=== PATIENT | female | born 1930 | race African-American/Black ===

== ENCOUNTER 2020-03-28 00:53 | Inpatient (IN) | payer MEDICARE, OTHER ==
[~2020-03-28] VITALS: Ht 154.9 cm; Wt 86.3 kg
[2020-03-28 02:11] LABS: BASOPHILS % 0.2 % (0.0-2.0); CHLORIDE 94 mEq/L (98-107); EOSINOPHILS % 4.1 % (0.0-5.0); HEMATOCRIT. 35.9 % (36.0-48.0); HEMOGLOBIN. 12.4 g/dL (12.0-16.0); MEAN CORPUSCULAR HEMOGLOBIN 32.4 pg (28.0-32.0); MEAN CORPUSCULAR VOLUME 93.8 fL (81.0-99.0); MEAN PLATELET VOLUME 8.3 fl (7.4-10.4); MONOCYTES % 13.1 % (2.0-8.0); NEUTROPHILS % 62.6 % (40.0-76.0); PLATELET 203 x1000/uL (130-400); RED BLOOD CELL COUNT 3.82 mill/uL (4.2-5.4); RED CELL DISTRIBUTION WIDTH 13.4 % (11.6-14.6)
[2020-03-28 02:16] LABS: INR 0.9
[2020-03-28 04:24] LABS: CLARITY URINE CLEAR (CLEAR); COLOR URINE DARK YELLOW (YELLOW); KETONES URINE NEGATIVE (NEGATIVE); LEUKOCYTE ESTERASE URINE 1+ (NEGATIVE); NITRITE URINE NEGATIVE (NEGATIVE); OCCULT BLOOD URINE NEGATIVE (NEGATIVE); PROTEIN URINE NEGATIVE (NEGATIVE); SPECIFIC GRAVITY URINE 1.018 (1.005-1.030); UROBILINOGEN URINE 0.2 E.U./dL (0.2-1.0)
[2020-03-28] MEDS ORDERED: SODIUM CHLORIDE 0.9% 1,000 ML IV ONE (04:59)
[2020-03-28] MEDS ORDERED: LEVOFLOXACIN 750MG PREMIX 150 ML IV SCH (05:15)
[2020-03-28] MEDS ORDERED: LEVOFLOXACIN 500MG PREMIX 100 ML IV SCH (07:00)
[2020-03-28] MEDS ORDERED: GUAIFENESIN 200MG/10ML SUGAR FREE UDC PO PRN (07:00)
[2020-03-28] MEDS ORDERED: ONDANSETRON HCL 4MG/2ML INJ IV PRN (07:00)
[2020-03-28] MEDS ORDERED: ACETAMINOPHEN 325MG TABLET PO PRN ×2 (07:00)
[2020-03-28] MEDS ORDERED: MAGNESIUM/ALUMINUM HYDROXIDE/SIMETHICONE 30ML UDC PO PRN (07:00)
[2020-03-28] MEDS ORDERED: ENOXAPARIN 40MG/0.4ML SYR SUBCUT SCH (07:00)
[2020-03-28] MEDS ORDERED: NITROGLYCERIN 0.4MG TABLET SL SL PRN (07:00)
[2020-03-28] MEDS ORDERED: DOCUSATE SODIUM 100MG CAPSULE PO PRN (07:00)
[2020-03-28] MEDS: SODIUM CHLORIDE 0.9% 1,000 ML IV SCH ×2 (08:15→17:22)
[2020-03-28] MEDS: ZINC SULFATE 220 MG ( 50 ) CAPSULE PO SCH (08:35)
[2020-03-28] MEDS: FAMOTIDINE 20MG TABLET PO SCH (08:35)
[2020-03-28] MEDS: ASCORBIC ACID 500 MG TABLET PO SCH ×2 (08:35→23:42)
[2020-03-28] MEDS ORDERED: FAMOTIDINE 20MG TABLET PO SCH (09:00)
[2020-03-28] MEDS ORDERED: ENOXAPARIN 30MG/0.3ML SYR SUBCUT SCH (09:00)
[2020-03-28 09:31] LABS: T4 FREE 1.14 ng/dL (0.76-1.46)
[2020-03-28 09:42] LABS: FOLIC ACID (FOLATE) SERUM >20 ng/mL ng/mL (>5.38)
[2020-03-28 09:56] LABS: VITAMIN B12 SERUM > 2000.0 pg/mL (211-911)
[2020-03-28 22:12] VITALS: BP 157/79
[2020-03-28 23:00] VITALS: BP 156/79
[2020-03-28] MEDS: TRAMADOL 50MG TABLET PO PRN (23:41)
[2020-03-29] VITALS: BP 156/79
[2020-03-29 00:41] LABS: CREATINE KINASE MB FRACTION 10.8 ng/mL (0.5-3.6)
[2020-03-29] MEDS: ZOLPIDEM TARTRATE 5MG TABLET PO PRN ×2 (02:39→21:36)
[2020-03-29] MEDS: SODIUM CHLORIDE 0.9% 1,000 ML IV SCH ×3 (02:41→21:36)
[2020-03-29 04:00] VITALS: BP 130/71
[2020-03-29] MEDS: ENOXAPARIN 80MG/0.8ML SYR SUBCUT SCH (05:51)
[2020-03-29 08:00] VITALS: BP 160/89
[2020-03-29 08:15] LABS: BASOPHILS % 0.3 % (0.0-2.0); EOSINOPHILS % 1.7 % (0.0-5.0); HEMATOCRIT. 36.1 % (36.0-48.0); HEMOGLOBIN. 12.4 g/dL (12.0-16.0); LYMPHOCYTES % 16.3 % (20.0-50.0); MEAN CORPUSCULAR HEMOGLOBIN 32.7 pg (28.0-32.0); MEAN CORPUSCULAR VOLUME 95.4 fL (81.0-99.0); MEAN PLATELET VOLUME 7.3 fl (7.4-10.4); MONOCYTES % 14.9 % (2.0-8.0); NEUTROPHILS % 66.8 % (40.0-76.0); PLATELET 197 x1000/uL (130-400); RED BLOOD CELL COUNT 3.78 mill/uL (4.2-5.4); RED CELL DISTRIBUTION WIDTH 12.7 % (11.6-14.6)
[2020-03-29] MEDS: LEVOFLOXACIN 250MG PREMIX 50 ML IV SCH (08:30)
[2020-03-29] MEDS: ZINC SULFATE 220 MG ( 50 ) CAPSULE PO SCH (08:30)
[2020-03-29] MEDS: ASCORBIC ACID 500 MG TABLET PO SCH ×2 (08:30→21:36)
[2020-03-29] MEDS: FAMOTIDINE 20MG TABLET PO SCH (08:30)
[2020-03-29 08:33] LABS: CHLORIDE 103 mEq/L (98-107)
[2020-03-29 08:48] LABS: PHOSPHORUS 3.4 mg/dL (2.5-4.9)
[2020-03-29 11:54] LABS: T4 FREE 1.27 ng/dL (0.76-1.46)
[2020-03-29 12:00] VITALS: BP 169/83
[2020-03-29] MEDS: CLONIDINE 0.1MG TABLET PO PRN ×2 (13:44→21:48)
[2020-03-29 16:00] VITALS: BP 135/69
[2020-03-29] MEDS ORDERED: LOSA50TA41 PO (17:40)
[2020-03-29] MEDS ORDERED: GABA-529 PO (17:40)
[2020-03-29] MEDS ORDERED: HYDR100T26 MT (17:40)
[2020-03-29] MEDS ORDERED: ATEN50TA PO (17:40)
[2020-03-29] MEDS ORDERED: METH25TA5 PO (17:40)
[2020-03-29 17:48] LABS: CREATINE KINASE MB FRACTION 18.7 ng/mL (0.5-3.6)
[2020-03-29 19:31] VITALS: BP 165/72
[2020-03-29] MEDS: IPRATROPIUM/ALBUTEROL 0.5-3(2.5)MG/3ML NEB ORI PRN (23:42)
[2020-03-30] VITALS: BP 145/72
[2020-03-30 00:49] LABS: CREATINE KINASE MB FRACTION 18.2 ng/mL (0.5-3.6)
[2020-03-30 03:48] VITALS: BP 157/93
[2020-03-30 07:40] LABS: PHOSPHORUS 2.8 mg/dL (2.5-4.9)
[2020-03-30 07:42] LABS: CREATINE KINASE MB FRACTION 21.5 ng/mL (0.5-3.6)
[2020-03-30] MEDS ORDERED: HYDRALAZINE HCL 50MG TABLET PO NR (07:45)
[2020-03-30 08:00] VITALS: BP 204/101
[2020-03-30] MEDS: ASPIRIN 81MG TABLET PO SCH (08:03)
[2020-03-30] MEDS: ASCORBIC ACID 500 MG TABLET PO SCH ×2 (08:03→21:21)
[2020-03-30] MEDS: ZINC SULFATE 220 MG ( 50 ) CAPSULE PO SCH (08:03)
[2020-03-30] MEDS: FAMOTIDINE 20MG TABLET PO SCH (08:03)
[2020-03-30] MEDS: ENOXAPARIN 80MG/0.8ML SYR SUBCUT SCH (08:04)
[2020-03-30] MEDS: LEVOFLOXACIN 250MG PREMIX 50 ML IV SCH (08:28)
[2020-03-30] MEDS: SODIUM CHLORIDE 0.9% 1,000 ML IV SCH ×2 (08:36→09:15)
[2020-03-30] MEDS: IPRATROPIUM/ALBUTEROL 0.5-3(2.5)MG/3ML NEB ORI PRN (09:01)
[2020-03-30] MEDS: CLOPIDOGREL 75MG TABLET PO SCH (10:39)
[2020-03-30] MEDS ORDERED: BRIM5DRO6 EACHEYE (10:42)
[2020-03-30] MEDS ORDERED: DORZ10DR12 EACHEYE (10:44)
[2020-03-30] MEDS ORDERED: LATA2.5D4 EACHEYE (10:44)
[2020-03-30 12:00] VITALS: BP 132/77
[2020-03-30] MEDS ORDERED: MAGNESIUM 1 G PREMIX 100 ML IV ONE (13:00)
[2020-03-30] MEDS ORDERED: IPRATROPIUM/ALBUTEROL 0.5-3(2.5)MG/3ML NEB ORI SCH (13:00)
[2020-03-30] MEDS: HYDRALAZINE HCL 50MG TABLET PO SCH ×2 (13:41→21:21)
[2020-03-30 16:00] VITALS: BP 129/97
[2020-03-30] MEDS ORDERED: MEDICATION NOT ON FORMULARY EA (Brimonidine Tartrate 1 DROP) EACHEYE SCH (17:00)
[2020-03-30] MEDS: BRIMONIDINE 0.2% OPHTH DROPS 5ML EACHEYE SCH (17:10)
[2020-03-30] MEDS: METHAZOLAMIDE 50MG TABLET PO SCH (17:26)
[2020-03-30] MEDS: DORZOLAM/TIMOLOL 2.23/0.68% OPHTH DROPS 10ML EACHEYE SCH (17:26)
[2020-03-30 18:08] LABS: BG BASE EXCESS -6.8 mmol/L (-2.0-2.0); BG CARBOXYHEMOGLOBIN 0.3 % (0.5-1.5); BG DEOXYHEMOGLOBIN 1.8 % (0.0-5.0); BG HCO3 ACT 16.9 mmol/L (22.0-26.0); BG OXYGEN SATURATION 98.2 % (92.0-98.5); BG OXYHEMOGLOBIN 97.9 % (94.0-97.0); BG PCO2 28.4 mmHg (35.0-45.0); BG PH 7.393 (7.350-7.450); BG PO2 117.6 mmHg (75.0-100.0); BG SAMPLE SITE RIGHT BRACHIAL; BG TOTAL HEMOGLOBIN 11.1 g/dL (12.0-18.0); BG VENT MODE NASAL CANNULA
[2020-03-30 20:00] VITALS: BP 164/100
[2020-03-30] MEDS: IPRATROPIUM/ALBUTEROL 0.5-3(2.5)MG/3ML NEB HHN SCH (21:15)
[2020-03-30] MEDS: BUDESONIDE 0.5MG/2ML NEB HHN SCH (21:16)
[2020-03-30] MEDS: LATANOPROST 0.005% OPHTH DROPS 2.5ML EACHEYE SCH (21:20)
[2020-03-31] VITALS: BP 172/90
[2020-03-31] MEDS: CLONIDINE 0.1MG TABLET PO PRN (00:49)
[2020-03-31] MEDS: SODIUM CHLORIDE 0.9% 1,000 ML IV SCH ×2 (01:08→16:48)
[2020-03-31] MEDS: TRAMADOL 50MG TABLET PO PRN (01:15)
[2020-03-31] MEDS: IPRATROPIUM/ALBUTEROL 0.5-3(2.5)MG/3ML NEB HHN SCH ×4 (01:31→21:23)
[2020-03-31 04:00] VITALS: BP 137/86
[2020-03-31] MEDS: HYDRALAZINE HCL 50MG TABLET PO SCH ×3 (06:06→21:35)
[2020-03-31] MEDS: LEVOFLOXACIN 250MG PREMIX 50 ML IV SCH (06:06)
[2020-03-31 08:00] VITALS: BP 152/95
[2020-03-31] MEDS: BUDESONIDE 0.5MG/2ML NEB HHN SCH ×2 (08:21→21:23)
[2020-03-31] MEDS: BRIMONIDINE 0.2% OPHTH DROPS 5ML EACHEYE SCH ×2 (08:58→16:49)
[2020-03-31] MEDS: CLOPIDOGREL 75MG TABLET PO SCH (08:58)
[2020-03-31] MEDS: DORZOLAM/TIMOLOL 2.23/0.68% OPHTH DROPS 10ML EACHEYE SCH ×2 (08:58→16:49)
[2020-03-31] MEDS: ASPIRIN 81MG TABLET PO SCH (08:58)
[2020-03-31] MEDS: FAMOTIDINE 20MG TABLET PO SCH (08:59)
[2020-03-31] MEDS: ZINC SULFATE 220 MG ( 50 ) CAPSULE PO SCH (08:59)
[2020-03-31] MEDS ORDERED: ASPIRIN 81MG TABLET PO SCH (09:00)
[2020-03-31] MEDS: ASCORBIC ACID 500 MG TABLET PO SCH ×2 (09:00→21:35)
[2020-03-31] MEDS: METHAZOLAMIDE 50MG TABLET PO SCH ×2 (09:17→16:49)
[2020-03-31] MEDS: ENOXAPARIN 80MG/0.8ML SYR SUBCUT SCH (09:28)
[2020-03-31] MEDS ORDERED: SODIUM CHLORIDE 0.9% 500 ML IV SCH (10:30)
[2020-03-31 12:00] VITALS: BP 100/76
[2020-03-31 16:00] VITALS: BP 103/86
[2020-03-31 20:00] VITALS: BP 149/83
[2020-03-31] MEDS: LATANOPROST 0.005% OPHTH DROPS 2.5ML EACHEYE SCH (21:34)
[2020-04-01] VITALS: BP 113/71
[2020-04-01] MEDS: IPRATROPIUM/ALBUTEROL 0.5-3(2.5)MG/3ML NEB HHN SCH ×4 (01:26→20:57)
[2020-04-01 04:00] VITALS: BP 106/73
[2020-04-01] MEDS: LEVOFLOXACIN 250MG PREMIX 50 ML IV SCH (05:12)
[2020-04-01] MEDS: HYDRALAZINE HCL 50MG TABLET PO SCH (05:13)
[2020-04-01] MEDS: SODIUM CHLORIDE 0.9% 1,000 ML IV SCH ×2 (05:30→20:55)
[2020-04-01] MEDS: BUDESONIDE 0.5MG/2ML NEB HHN SCH ×2 (08:14→20:57)
[2020-04-01 08:49] VITALS: BP 165/70
[2020-04-01] MEDS: BRIMONIDINE 0.2% OPHTH DROPS 5ML EACHEYE SCH ×2 (09:16→17:37)
[2020-04-01] MEDS: FAMOTIDINE 20MG TABLET PO SCH (09:17)
[2020-04-01] MEDS: ASPIRIN 81MG TABLET PO SCH (09:17)
[2020-04-01] MEDS: DORZOLAM/TIMOLOL 2.23/0.68% OPHTH DROPS 10ML EACHEYE SCH ×2 (09:17→17:37)
[2020-04-01] MEDS: ASCORBIC ACID 500 MG TABLET PO SCH ×2 (09:17→20:39)
[2020-04-01] MEDS: CLOPIDOGREL 75MG TABLET PO SCH (09:17)
[2020-04-01] MEDS: ZINC SULFATE 220 MG ( 50 ) CAPSULE PO SCH (09:17)
[2020-04-01] MEDS: ENOXAPARIN 80MG/0.8ML SYR SUBCUT SCH (09:18)
[2020-04-01] MEDS: METHAZOLAMIDE 50MG TABLET PO SCH ×2 (09:28→17:37)
[2020-04-01 13:16] VITALS: BP 152/83
[2020-04-01] MEDS: HYDRALAZINE HCL 25MG TABLET PO SCH ×2 (14:53→20:39)
[2020-04-01 15:26] LABS: T4 FREE 1.24 ng/dL (0.76-1.46)
[2020-04-01 15:27] LABS: CREATINE KINASE MB FRACTION 6.1 ng/mL (0.5-3.6)
[2020-04-01 15:37] LABS: FOLIC ACID (FOLATE) SERUM >20 ng/mL ng/mL (>5.38)
[2020-04-01 15:49] LABS: VITAMIN B12 SERUM > 2000.0 pg/mL (211-911)
[2020-04-01 16:18] VITALS: BP 158/71
[2020-04-01 20:00] VITALS: BP 152/77
[2020-04-01] MEDS: LATANOPROST 0.005% OPHTH DROPS 2.5ML EACHEYE SCH (20:41)
[2020-04-02] VITALS: BP 142/54
[2020-04-02] MEDS: IPRATROPIUM/ALBUTEROL 0.5-3(2.5)MG/3ML NEB HHN SCH ×4 (00:48→14:12)
[2020-04-02 04:00] VITALS: BP 148/68
[2020-04-02] MEDS: HYDRALAZINE HCL 25MG TABLET PO SCH ×3 (06:12→22:01)
[2020-04-02] MEDS: BUDESONIDE 0.5MG/2ML NEB HHN SCH (08:13)
[2020-04-02] MEDS: ASPIRIN 81MG TABLET PO SCH (08:26)
[2020-04-02] MEDS: BRIMONIDINE 0.2% OPHTH DROPS 5ML EACHEYE SCH ×2 (08:26→17:21)
[2020-04-02] MEDS: CLOPIDOGREL 75MG TABLET PO SCH (08:26)
[2020-04-02] MEDS: ZINC SULFATE 220 MG ( 50 ) CAPSULE PO SCH (08:26)
[2020-04-02] MEDS: ASCORBIC ACID 500 MG TABLET PO SCH ×2 (08:26→22:01)
[2020-04-02] MEDS: FAMOTIDINE 20MG TABLET PO SCH (08:26)
[2020-04-02] MEDS: METHAZOLAMIDE 50MG TABLET PO SCH ×2 (08:26→17:21)
[2020-04-02] MEDS: DORZOLAM/TIMOLOL 2.23/0.68% OPHTH DROPS 10ML EACHEYE SCH ×2 (08:26→17:21)
[2020-04-02] MEDS: ENOXAPARIN 80MG/0.8ML SYR SUBCUT SCH (08:27)
[2020-04-02 08:33] LABS: CHLORIDE 113 mEq/L (98-107)
[2020-04-02 09:25] VITALS: BP 157/67
[2020-04-02 12:27] VITALS: BP 142/49
[2020-04-02] MEDS: SODIUM CHLORIDE 0.9% 1,000 ML IV SCH (13:56)
[2020-04-02 16:27] VITALS: BP 149/98
[2020-04-02 20:00] VITALS: BP 139/62
[2020-04-02] MEDS: LATANOPROST 0.005% OPHTH DROPS 2.5ML EACHEYE SCH (22:13)
[2020-04-03] VITALS: BP 146/80
[2020-04-03 04:00] VITALS: BP 140/68
[2020-04-03] MEDS: SODIUM CHLORIDE 0.9% 1,000 ML IV SCH ×2 (05:35→21:03)
[2020-04-03] MEDS: HYDRALAZINE HCL 25MG TABLET PO SCH ×3 (05:35→21:05)
[2020-04-03 08:00] VITALS: BP 171/77
[2020-04-03] MEDS: ENOXAPARIN 80MG/0.8ML SYR SUBCUT SCH (09:13)
[2020-04-03] MEDS: FAMOTIDINE 20MG TABLET PO SCH (09:14)
[2020-04-03] MEDS: CLOPIDOGREL 75MG TABLET PO SCH (09:14)
[2020-04-03] MEDS: ASPIRIN 81MG TABLET PO SCH (09:14)
[2020-04-03] MEDS: ZINC SULFATE 220 MG ( 50 ) CAPSULE PO SCH (09:14)
[2020-04-03] MEDS: METHAZOLAMIDE 50MG TABLET PO SCH ×2 (09:14→18:35)
[2020-04-03] MEDS: ASCORBIC ACID 500 MG TABLET PO SCH ×2 (09:14→21:05)
[2020-04-03] MEDS: DORZOLAM/TIMOLOL 2.23/0.68% OPHTH DROPS 10ML EACHEYE SCH ×2 (09:18→18:35)
[2020-04-03] MEDS: BRIMONIDINE 0.2% OPHTH DROPS 5ML EACHEYE SCH ×2 (09:18→18:36)
[2020-04-03] MEDS: CLONIDINE 0.1MG TABLET PO PRN (09:32)
[2020-04-03 12:00] VITALS: BP 117/54
[2020-04-03 16:00] VITALS: BP_SYST 145; BP_DIAS 70; BP_DIAS 82
[2020-04-03] MEDS: IPRATROPIUM/ALBUTEROL 0.5-3(2.5)MG/3ML NEB HHN SCH (16:30)
[2020-04-03 20:00] VITALS: BP 164/83
[2020-04-03] MEDS: LATANOPROST 0.005% OPHTH DROPS 2.5ML EACHEYE SCH (21:05)
[2020-04-04] VITALS: BP 163/85
[2020-04-04] MEDS: IPRATROPIUM/ALBUTEROL 0.5-3(2.5)MG/3ML NEB HHN SCH ×4 (00:30→17:01)
[2020-04-04] MEDS: CLONIDINE 0.1MG TABLET PO PRN ×2 (00:51→08:36)
[2020-04-04 04:00] VITALS: BP 153/81
[2020-04-04] MEDS: HYDRALAZINE HCL 25MG TABLET PO SCH ×3 (05:20→22:08)
[2020-04-04 08:00] VITALS: BP 173/86
[2020-04-04] MEDS: FAMOTIDINE 20MG TABLET PO SCH (08:36)
[2020-04-04] MEDS: ZINC SULFATE 220 MG ( 50 ) CAPSULE PO SCH (08:36)
[2020-04-04] MEDS: ASCORBIC ACID 500 MG TABLET PO SCH ×2 (08:36→22:08)
[2020-04-04] MEDS: BRIMONIDINE 0.2% OPHTH DROPS 5ML EACHEYE SCH ×2 (08:37→18:39)
[2020-04-04] MEDS: METHAZOLAMIDE 50MG TABLET PO SCH ×2 (08:37→18:39)
[2020-04-04] MEDS: DORZOLAM/TIMOLOL 2.23/0.68% OPHTH DROPS 10ML EACHEYE SCH ×2 (08:37→18:39)
[2020-04-04] MEDS: ASPIRIN 81MG TABLET PO SCH (09:57)
[2020-04-04] MEDS: CLOPIDOGREL 75MG TABLET PO SCH (09:57)
[2020-04-04] MEDS: ENOXAPARIN 80MG/0.8ML SYR SUBCUT SCH (09:58)
[2020-04-04] MEDS: AMLODIPINE 10MG TABLET PO SCH (11:00)
[2020-04-04 12:00] VITALS: BP 140/69
[2020-04-04 16:00] VITALS: BP 124/51
[2020-04-04 20:00] VITALS: BP 139/71
[2020-04-04] MEDS: LATANOPROST 0.005% OPHTH DROPS 2.5ML EACHEYE SCH (22:08)
[2020-04-05] VITALS: BP 125/60
[2020-04-05 04:00] VITALS: BP 141/75
[2020-04-05] MEDS: HYDRALAZINE HCL 25MG TABLET PO SCH ×3 (05:12→21:22)
[2020-04-05 08:00] VITALS: BP 129/65
[2020-04-05] MEDS: ZINC SULFATE 220 MG ( 50 ) CAPSULE PO SCH (08:56)
[2020-04-05] MEDS: AMLODIPINE 10MG TABLET PO SCH (08:57)
[2020-04-05] MEDS: ASPIRIN 81MG TABLET PO SCH (08:57)
[2020-04-05] MEDS: FAMOTIDINE 20MG TABLET PO SCH (08:57)
[2020-04-05] MEDS: ASCORBIC ACID 500 MG TABLET PO SCH ×2 (08:57→21:22)
[2020-04-05] MEDS: METHAZOLAMIDE 50MG TABLET PO SCH ×2 (08:57→17:42)
[2020-04-05] MEDS: CLOPIDOGREL 75MG TABLET PO SCH (08:57)
[2020-04-05] MEDS: ENOXAPARIN 80MG/0.8ML SYR SUBCUT SCH (08:58)
[2020-04-05] MEDS: BRIMONIDINE 0.2% OPHTH DROPS 5ML EACHEYE SCH ×2 (08:59→17:42)
[2020-04-05] MEDS: DORZOLAM/TIMOLOL 2.23/0.68% OPHTH DROPS 10ML EACHEYE SCH ×2 (08:59→17:43)
[2020-04-05] MEDS: IPRATROPIUM/ALBUTEROL 0.5-3(2.5)MG/3ML NEB HHN SCH ×2 (10:34→16:27)
[2020-04-05 12:00] VITALS: BP 121/60
[2020-04-05] MEDS: SUCRALFATE 1 G/10 ML UDC PO SCH ×3 (12:44→21:21)
[2020-04-05 16:00] VITALS: BP 141/70
[2020-04-05] MEDS ORDERED: RIVAROXABAN 20 MG TABLET PO SCH (17:00)
[2020-04-05 20:00] VITALS: BP 169/83
[2020-04-05] MEDS: LATANOPROST 0.005% OPHTH DROPS 2.5ML EACHEYE SCH (21:28)
[2020-04-06] VITALS: BP 156/76
[2020-04-06] MEDS: IPRATROPIUM/ALBUTEROL 0.5-3(2.5)MG/3ML NEB HHN SCH ×2 (01:00→09:33)
[2020-04-06 04:00] VITALS: BP 139/75
[2020-04-06] MEDS: SUCRALFATE 1 G/10 ML UDC PO SCH ×2 (05:49→11:50)
[2020-04-06] MEDS: HYDRALAZINE HCL 25MG TABLET PO SCH ×2 (05:50→15:02)
[2020-04-06 08:00] VITALS: BP 158/81
[2020-04-06] MEDS: FAMOTIDINE 20MG TABLET PO SCH (09:11)
[2020-04-06] MEDS: ZINC SULFATE 220 MG ( 50 ) CAPSULE PO SCH (09:11)
[2020-04-06] MEDS: ASCORBIC ACID 500 MG TABLET PO SCH (09:11)
[2020-04-06] MEDS: DORZOLAM/TIMOLOL 2.23/0.68% OPHTH DROPS 10ML EACHEYE SCH (09:11)
[2020-04-06] MEDS: BRIMONIDINE 0.2% OPHTH DROPS 5ML EACHEYE SCH (09:11)
[2020-04-06] MEDS: METHAZOLAMIDE 50MG TABLET PO SCH (09:12)
[2020-04-06] MEDS: ASPIRIN 81MG TABLET PO SCH (09:12)
[2020-04-06] MEDS: AMLODIPINE 10MG TABLET PO SCH (09:12)
[2020-04-06 10:26] VITALS: BP 158/81
[2020-04-06 12:00] VITALS: BP 135/70
[2020-04-06] MEDS ORDERED: APIXABAN 5 MG TABLET PO SCH (17:00)
== END 2020-04-06 16:15 | DRG 871 ==
LOC: ER 00:53 → MICUSO 04:01 → EDBEDREQTM 04:05 → EDBEDREQ 04:05 → EDBEDREQSVC 04:05 → 5WST 23:13
PROVIDERS: ADMIT Internal Medicine; ATTEND Internal Medicine
DX: A41.9 Sepsis, unspecified organism (principal); N17.0 Acute kidney failure with tubular necrosis; I21.4 Non-ST elevation (NSTEMI) myocardial infarction; G92 Toxic encephalopathy; J96.00 Acute respiratory failure, unspecified whether with hypoxia or hypercapnia; I50.43 Acute on chronic combined systolic (congestive) and diastolic (congestive) heart failure; E87.1 Hypo-osmolality and hyponatremia; N39.0 Urinary tract infection, site not specified; I13.0 Hypertensive heart and chronic kidney disease with heart failure and stage 1 through stage 4 chronic kidney disease, or unspecified chronic kidney disease; E46 Unspecified protein-calorie malnutrition; E66.9 Obesity, unspecified; E78.5 Hyperlipidemia, unspecified; E83.42 Hypomagnesemia; N18.9 Chronic kidney disease, unspecified; E78.00 Pure hypercholesterolemia, unspecified; Z20.828 Contact with and (suspected) exposure to other viral communicable diseases; I27.20 Pulmonary hypertension, unspecified; I25.2 Old myocardial infarction; Z68.36 Body mass index [BMI] 36.0-36.9, adult
CPT/HCPCS: 36415; 36600; 71045; 73560; 76770; 78582; 80048; 80053; 80061; 81003; 82140; 82375; 82550; 82553; 82607; 82746; 82805; 83036; 83540; 83550; 83605; 83735; 83880; 84100; 84145; 84439; 84443; 84481; 84484; 85025; 85379; 93005; 93306; 93970; 94640; 97116; 97162; 97166; 97535; 99285; A9558; J1650; J1956; J3475; J7030; J7626; U0003-CS